=== PATIENT | male | born 1965 | race Caucasian/White ===

== ENCOUNTER 2017-06-20 12:14 | Emergency (ER) | payer MEDICAID ==
[~2017-06-20] VITALS: Ht 170.2 cm; Wt 91.2 kg
[2017-06-20 12:22] VITALS: BP 127/81
--- NOTE | 2017-06-20 12:26 | NUR ---
Pt provided UA specimen and sent to wait in ER lobby for bed/chair.
--- NOTE | 2017-06-20 12:43 | NUR ---
PT TAKEN TO CHAIR A.
--- NOTE | 2017-06-20 12:45 | NUR ---
51M BIB FAMILY C/O INTERMITTENT LEFT FLANK PAIN X 2- 3 YEARS; PT STATES NO RECENT TRAUMA OR INJURY AT THIS TIME; PT STATES NO PAIN OR DISCOMFORT AT THIS TIME; PT STATES " I JUST NEED A NOTE SAYING I'M CLEARED FOR WORK FOR MY BOSS. NOTHING HURTS RIGHT NOW"; PT AA&OX4, BL LUNG SOUNDS CLEAR, RR EVEN/UNLABORED, STATES NO N/V/D AT THIS TIME, WITH EVEN AND STEADY GAIT; PT RESTING IN CHAIR, POSITIONED FOR COMFORT; ER MD MADE AWARE OF STATUS. WILL CONTINUE TO MONITOR.
--- NOTE | 2017-06-20 13:55 | NUR ---
ER MD DR. GUZMAN EVALUATING PT AT CHAIR.
[2017-06-20 14:11] VITALS: BP 132/82
--- NOTE | 2017-06-20 14:11 | NUR ---
Patient discharged with v/s stable. Written and verbal after care instructions given and explained. Patient alert, oriented and verbalized understanding of instructions. Ambulatory with steady gait. All questions addressed prior to discharge. ID band removed. Patient advised to follow up with PMD. Rx of FLEXERIL 10MG TAB & IBUPROFEN 600MG TAB given. Patient educated on indication of medication including possible reaction and side effects. Opportunity to ask questions provided and answered.
== END 2017-06-20 14:11 | disposition home or self-care (01) ==
LOC: MED 12:14
DX: S39.011A Strain of muscle, fascia and tendon of abdomen, initial encounter (principal); Z86.73 Personal history of transient ischemic attack (TIA), and cerebral infarction without residual deficits; X58.XXXA Exposure to other specified factors, initial encounter; Y93.89 Activity, other specified; Y92.89 Other specified places as the place of occurrence of the external cause; Y99.8 Other external cause status
CPT/HCPCS: 81002; 99283

== ENCOUNTER 2019-03-31 13:17 | Emergency (ER) | payer MEDICAID ==
[~2019-03-31] VITALS: Ht 170.2 cm; Wt 105.2 kg
[2019-03-31 13:30] VITALS: BP 117/86
--- NOTE | 2019-03-31 13:34 | NUR ---
PT APPEARS VERY ANXIOUS, TORE BP CUFF OFF OF ARM IN TRIAGE, AND BEGAN TO BREATHE HEAVILY. STATED "HES HAVING A PANIC ATTACK" REASSURED PT HE WAS SAFE AND WE ARE GOING TO HELP HIM, PT BEGAN TO RELAX AND WAS TAKEN TO BED 9 VIA WHEELCHAIR
--- NOTE | 2019-03-31 13:35 | NUR ---
FLU SWAB COLLECTED
--- NOTE | 2019-03-31 14:02 | NUR ---
C/O BODY ACHES, COUGH, SORE THROAT, N/V X3 DAYS. PT STATES HE FEELS WEAK AND FEELS LIKE HE IS GOING TO "BLACK OUT" VSS. PT IS AFEBRILE AT THIS TIME. HX: FIBROMYALGIA RX: GABAPENTIN. SKIN IS PINK/WARM/DRY; AAOX4 WITH EVEN AND STEADY GAIT; LUNGS CLEAR BL; HR EVEN AND REGULAR; PT DENIES ANY FEVER, CP, SOB, AT THIS TIME; PATIENT STATES PAIN OF 6/10 AT THIS TIME; VSS; PATIENT POSITIONED FOR COMFORT; HOB ELEVATED; BEDRAILS UP X2; BED DOWN. ER MD MADE AWARE OF PT STATUS.
--- NOTE | 2019-03-31 14:30 | NUR ---
PT LWBS AT 1430.
== END 2019-03-31 14:30 | disposition left against medical advice (07) ==
LOC: MED 13:17
DX: R05 Cough (principal); J02.9 Acute pharyngitis, unspecified; Z53.21 Procedure and treatment not carried out due to patient leaving prior to being seen by health care provider